=== PATIENT | male | born 1990 | race Caucasian/White ===

== ENCOUNTER 2018-03-27 20:54 | Emergency (ER) | payer MEDICAID ==
[~2018-03-27] VITALS: Ht 167.6 cm; Wt 102.0 kg
[2018-03-27 20:58] VITALS: BP 151/108
[2018-03-27] MEDS ORDERED: OMEP10CA41 PO (21:00)
[2018-03-27] MEDS ORDERED: LORA5TAB9 PO (21:00)
[2018-03-27] MEDS ORDERED: IBUPROFEN 600 MG TABLET PO ONE (22:00)
== END 2018-03-27 22:41 | disposition home or self-care (01) ==
LOC: EMS 20:56
DX: S43.102A Unspecified dislocation of left acromioclavicular joint, initial encounter (principal); K21.9 Gastro-esophageal reflux disease without esophagitis; F12.90 Cannabis use, unspecified, uncomplicated; Z88.1 Allergy status to other antibiotic agents; V43.52XA Car driver injured in collision with other type car in traffic accident, initial encounter; Y93.89 Activity, other specified; Y92.488 Other paved roadways as the place of occurrence of the external cause; Y99.8 Other external cause status